=== PATIENT | female | born 1945 | race Caucasian/White ===

== ENCOUNTER 2021-09-04 10:17 | Inpatient (IN) | payer MEDICARE ==
[~2021-09-04] VITALS: Ht 165.1 cm; Wt 49.4 kg
[2021-09-04] MEDS ORDERED: IV NORMAL SALINE 1000 ML BAG IV ONE (10:30)
[2021-09-04 11:12] LABS: CARBON DIOXIDE 23 mmol/L (21-32); CHLORIDE 94 mmol/L (98-107); GLUCOSE 72 mg/dL (74-106); POTASSIUM 4.3 mmol/L (3.5-5.1); UREA NITROGEN, BLOOD 23 mg/dL (7-18)
[2021-09-04 11:18] LABS: HEMATOCRIT 46.3 % (31.2-41.9); MEAN CORPUSCULAR HEMOGLOBIN 32.6 uug (24.7-32.8); MEAN CORPUSCULAR VOLUME 94.7 fL (75.5-95.3); PLATELET COUNT (AUTO) 247 K/uL (179-408)
[2021-09-04 11:19] LABS: ALANINE AMINOTRANSFERASE 20 U/L (14-59); ALKALINE PHOSPHATASE 80 U/L (50-136); ASPARTATE AMINOTRANSFERASE 15 U/L (15-37); BILIRUBIN,DIRECT 0.2 mg/dL (0.0-0.2); BILIRUBIN,TOTAL 1.2 mg/dL (0.2-1.0)
--- NOTE | 2021-09-04 11:30 | NUR ---
pt says that wants to go home and is asking krystal, friend to come and pick her up.
[2021-09-04] MEDS ORDERED: LORAZEPAM 2 MG/1 ML VIAL ONE (11:36)
[2021-09-04] MEDS ORDERED: LORAZEPAM 2 MG/1 ML VIAL IV ONE (11:45)
[2021-09-04] MEDS ORDERED: ZIPRASIDONE MESYLATE 20 MG VIAL IM ONE ×2 (11:51→12:00)
--- NOTE | 2021-09-04 12:20 | NUR ---
LATE ENTRY: pt did not want to stay in her room and tries to leave the room, all comfort measures aqnd reorienting provided. pt still insists that there is nothing wrong with her and wants to home. medicated pt per md order.pt on monitor. vss on ra at this point. pt awake and talking and asking the same questions over and over. covid preacautions implemeted, had to stay long time at bedside to provided xcomfort measures and assurance and explanation to pt.
--- NOTE | 2021-09-04 12:53 | NUR ---
pt calm resting, arousable, on monitor, vss on ra.
[2021-09-04] MEDS ORDERED: ACETAMINOPHEN 650 MG/20.3 ML LIQUID UDC PO PRN (14:00)
[2021-09-04] MEDS ORDERED: ONDANSETRON 4 MG/2 ML VIAL IV PRN (14:00)
--- NOTE | 2021-09-04 15:19 | NUR ---
ORTHSTATIC BP: FLAT 124/81, 97, SITTIN G UP 138/83, HR 99 UNABLE TO DO THE STAND UP POSITION, PT UNABLE TO FOLLOW THE DIRECTION
--- NOTE | 2021-09-04 17:00 | NUR ---
ADMITTED VIA [facility], ACCOMPANIED BY NURSING. ORIENTED TO SURROUNDINGS. PLACED ON ISOLATION FOR COVID+. VERY CONFUSED AND DISORIENTED. REORIENTED REPEATEDLY UNSUCCESSFULLY.
--- NOTE | 2021-09-04 17:36 | NUR ---
Pt tranf. to 3rd floor COVID isolation.
[2021-09-04 18:15] VITALS: BP 162/78
[2021-09-04 20:00] VITALS: BP 127/84
[2021-09-04] MEDS: APIXABAN 2.5 MG TABLET PO SCH (22:19)
[2021-09-04] MEDS: IV NS 1000 ML 1,000 ML IV PRN (22:19)
[2021-09-05 00:27] VITALS: BP 128/73
[2021-09-05 04:00] VITALS: BP_SYST 138; BP_SYST 142; BP_SYST 145; BP_DIAS 84; BP_DIAS 87; BP_DIAS 90
--- NOTE | 2021-09-05 05:00 | NUR ---
mrsa swab and PCR pt fairly slept; patient wants to go home; on and off IVF because pt is getting out of bed for safety; continue to monitor; continue plan of care;
--- NOTE | 2021-09-05 06:38 | NUR ---
a call to Wong IQBAL [phone] done, left message to call 3rd floor back regarding info and home meds. will endorse to next nurse.
[2021-09-05] MEDS ORDERED: no home meds (06:46)
--- NOTE | 2021-09-05 06:46 | NUR ---
Pt's person to notify Wong Arias called back and reported that Ms Nova has no home medications.
--- NOTE | 2021-09-05 07:59 | NUR ---
patient has been refusing her tele monitor, refused again, risks and benefits explained, still refused, stable condition, will continue to monitor, no acute distress noted
[2021-09-05] MEDS ORDERED: OLANZAPINE 5 MG TABLET PO ONE (09:15)
[2021-09-05] MEDS: APIXABAN 2.5 MG TABLET PO SCH (09:18)
--- NOTE | 2021-09-05 09:30 | NUR ---
patient constantly coming out of her room, reinforced instructions about covid positive, patient understands only some instructions, wanders around constantly, keep asking to go home constantly, called her friend, Wong spoke to patient and tiry to reinforce as well, however patient still keep coming out and wanders around. spoke to SOFY Simon that patient keep asking she wants to go home, Per CAR INSPECTOR Aurora, she would like patient to be seen by [facility]ist first. psych eval placed per SOFY Simon order.
[2021-09-05] MEDS ORDERED: OLANZAPINE 10 MG VIAL IM ONE (10:15)
--- NOTE | 2021-09-05 10:36 | NUR ---
patient still was very aggressive, wandering around, not staying in room, assessed by WEB MACHINE TENDER Aurora, with order to give zyprexa, administered, called cell room supervisor and asked for help, to put patient on 1:1 intervention, per cell room supervisor on duty, Charge nurse on duty is going to take care of patient as 1:1. charge nurse is there with patient in her room.
[2021-09-05] MEDS ORDERED: diphenhydrAMINE 50 MG/1 ML VIAL IV ONE (10:45)
[2021-09-05] MEDS ORDERED: HALOPERIDOL LACTATE 5 MG/1 ML VIAL IM ONE ×2 (10:45→16:45)
--- NOTE | 2021-09-05 11:06 | NUR ---
haldol administered as ordered, charge nurse on duty is patient room 1:1 monitoring.
--- NOTE | 2021-09-05 11:07 | NUR ---
fluids and toileting offered, patient is in bed, no acute distress noted, charge nurse is there monitoring patient at bedside as 1:1
[2021-09-05 11:15] VITALS: BP 122/68
--- NOTE | 2021-09-05 11:52 | NUR ---
patient is in sleep, no distress noted, current vitals are 106/73, pulse 110 on tele monitor, o2 sat 96% at room air. 1:1 sitter is bedside.
--- NOTE | 2021-09-05 13:35 | NUR ---
patient is sitting up and eating lunch, no distress noted at this time
[2021-09-05] MEDS: ENSURE ENLIVE (VAN) 240 ML LIQUID PO SCH ×2 (13:52→15:16)
[2021-09-05] MEDS: PROTEIN SUPPLEMENT (PROSTAT) 30 ML LIQUID PO SCH (13:52)
[2021-09-05] MEDS: AZITHROMYCIN 250 MG TABLET PO SCH (15:16)
[2021-09-05 15:30] VITALS: BP 129/67
--- NOTE | 2021-09-05 16:01 | NUR ---
patient is very restless, yelling and wants to go out of room, reenforced, fluids offered, toileting offered, patient is clean and dry, afib uncontrolled, dr Nina made aware. continue to monitor
[2021-09-05] MEDS: METOPROLOL TARTRATE 50 MG TABLET PO SCH (17:33)
--- NOTE | 2021-09-05 18:09 | NUR ---
haldol administered, patient calm down, ate dinner herself, 1:1 sitter at bedside, no acute distress noted, fluids offered, kept clean and dry, toilet offered, skin and circulation assessed to both wrists, hands, no skin issues noted, capillary refill less than 3 seconds. continue with care and continue to keep patient comfortable.
--- NOTE | 2021-09-05 19:18 | NUR ---
Patient in bed, awake, monitored during shift closely for safety, no acute distress noted, 1! sitpham, communicated with sitter about patient care and endorsed to next shift accordingly. Addendum: 09/05/21 at 1933 by TYLER JAMES RN RN patient is still afib but pulse is in high 90s, much better than before after administering beta lowell as ordered by dr guzman
[2021-09-05 20:00] VITALS: BP 131/71
[2021-09-05] MEDS: APIXABAN 5 MG TABLET PO SCH (20:47)
[2021-09-05] MEDS: IV NS 1000 ML 1,000 ML IV PRN (23:52)
[2021-09-06] VITALS: BP 136/65
[2021-09-06 04:00] VITALS: BP 141/78
[2021-09-06 07:04] LABS: HEMATOCRIT 43.4 % (31.2-41.9); MEAN CORPUSCULAR HEMOGLOBIN 32.3 uug (24.7-32.8); MEAN CORPUSCULAR VOLUME 91.5 fL (75.5-95.3); PLATELET COUNT (AUTO) 251 K/uL (179-408)
[2021-09-06 07:35] LABS: CREATININE 0.6 mg/dL (0.6-1.3); MAGNESIUM 1.9 mg/dL (1.8-2.4); PHOSPHOROUS 1.5 mg/dL (2.5-4.9); POTASSIUM 3.1 mmol/L (3.5-5.1)
[2021-09-06 08:00] VITALS: BP 105/57
[2021-09-06] MEDS: PROTEIN SUPPLEMENT (PROSTAT) 30 ML LIQUID PO SCH (08:00)
[2021-09-06] MEDS: APIXABAN 5 MG TABLET PO SCH ×2 (09:20→20:29)
[2021-09-06] MEDS: METOPROLOL TARTRATE 50 MG TABLET PO SCH ×3 (09:26→17:31)
[2021-09-06] MEDS: ENSURE ENLIVE (VAN) 240 ML LIQUID PO SCH ×3 (09:34→17:09)
[2021-09-06 12:00] VITALS: BP 112/70
[2021-09-06] MEDS: POTASSIUM CHLORIDE 20 MEQ TAB.PRT.SR PO SCH ×2 (15:23→17:29)
[2021-09-06 16:00] VITALS: BP 111/69
[2021-09-06] MEDS: IV NS 1000 ML 1,000 ML IV PRN (16:11)
[2021-09-06] MEDS: AZITHROMYCIN 250 MG TABLET PO SCH (16:11)
[2021-09-06] MEDS ORDERED: SODIUM PHOSPHATE MM 15 MMOL in IV NORMAL SALINE 250 ML IV ONE (17:00)
[2021-09-06] MEDS: HALOPERIDOL 0.5 MG TABLET PO SCH (17:28)
--- NOTE | 2021-09-06 19:30 | NUR ---
Received pt awake, alert and oriented x2. Sitter at bedside. Pt in no acute distress.Pt heart rate on controlled afib. aware of the heart rhythm. Safety and comfort provided. Will continue to monitor.
[2021-09-06] MEDS: DIVALPROEX 125 MG TABLET.DR PO SCH (20:25)
[2021-09-06 20:36] VITALS: BP 127/76
[2021-09-07] VITALS (7 sets, daily range): BP systolic 106–149; BP diastolic 62–91
--- NOTE | 2021-09-07 06:14 | NUR ---
Pt slept intermittently. Pt in no acute distress. Iv intact.Sitter at bedside for safety. Pt trying to get out of the bed . Pt needs reorientation. Pt on controlled afib. Prescribed medication given and pt tolerated it well.Pt turned and repositioned. Safety and comfort provided. Will endorse to incoming nurse for continuity of care.
[2021-09-07 06:41] LABS: HEMATOCRIT 42.6 % (31.2-41.9); MEAN CORPUSCULAR HEMOGLOBIN 32.4 uug (24.7-32.8); MEAN CORPUSCULAR VOLUME 93.1 fL (75.5-95.3); PLATELET COUNT (AUTO) 231 K/uL (179-408)
[2021-09-07 07:22] LABS: CREATININE 0.6 mg/dL (0.6-1.3); POTASSIUM 3.6 mmol/L (3.5-5.1)
[2021-09-07] MEDS: PROTEIN SUPPLEMENT (PROSTAT) 30 ML LIQUID PO SCH (08:56)
--- NOTE | 2021-09-07 09:30 | NUR ---
RECEIVED PATIENT IN BED AWAKE ALERT TO SELF CONFUSED AND DISORIENTED ON ROOM AIR WITH NO SHORTNESS OF BREATH AT THIS TIME SHE IS ON COVID ISOLATION AND PRECAUTION NO COUGHS OR FEVER ASYMPTOMATIC AT THIS TIME IVF ORDERED WITH NO S/S OF INFILTERATION ON SITE. SHE HAS A BILATERAL WRIST RESTRAINTS FOR SAFETY AND A ONE ON ONE SITTER PATIENT MADE COMFORTABLE WILL CONTINUE TO OBSERVE.
[2021-09-07] MEDS: HALOPERIDOL 0.5 MG TABLET PO SCH ×3 (09:37→16:22)
[2021-09-07] MEDS: DIVALPROEX 125 MG TABLET.DR PO SCH ×2 (09:37→20:26)
[2021-09-07] MEDS: METOPROLOL TARTRATE 50 MG TABLET PO SCH ×3 (09:38→16:22)
[2021-09-07] MEDS: APIXABAN 5 MG TABLET PO SCH ×2 (09:42→20:26)
[2021-09-07] MEDS: ENSURE ENLIVE (VAN) 240 ML LIQUID PO SCH ×3 (09:48→16:23)
--- NOTE | 2021-09-07 11:45 | NUR ---
ONE ON ONE SITTER DISCONTINUED AT THIS TIME PATIENT HAS BEEN QUITE AND BEING CONTROLLED BY THE BILATERAL WRIST RESTRAINTS ORDERED
[2021-09-07] MEDS: AZITHROMYCIN 250 MG TABLET PO SCH (16:22)
[2021-09-07] MEDS ORDERED: SODIUM PHOSPHATE MM 15 MMOL in IV NORMAL SALINE 250 ML IV ONE (17:00)
--- NOTE | 2021-09-07 19:30 | NUR ---
Received patient lying in bed. AAOX1-2. Able to answer simple question and follow simple direction. In no apparent distress. Wrist restraint in place. Circulation on wrist and hand checked. IV site on right upper arm intact and patent. Sodium phos infusing at this time. A. fib on tele with HR of 90/min. COVID precaution observed. Safety measure initiated. Continue to monitor.
[2021-09-08] VITALS: BP 135/87
[2021-09-08] MEDS ORDERED: GUAIFENESIN/DEXTROMETHORPHAN 5 ML UDC PO PRN (01:00)
--- NOTE | 2021-09-08 05:28 | NUR ---
Patient slept well during the night. Remains AAOX1-2. In no acute distress. No signs or symptoms of pain or SOB. Wrist restraint remains in place. Circulation on wrist and hand checked ever 2 hours. IV site on right upper arm intact and patent. IVF infusing. A. fib on tele with HR of 98/min. COVID precaution maintained. Safety measure maintained.
[2021-09-08 07:27] LABS: CREATININE 0.7 mg/dL (0.6-1.3); PHOSPHOROUS 3.2 mg/dL (2.5-4.9); POTASSIUM 3.6 mmol/L (3.5-5.1)
[2021-09-08] MEDS: DIVALPROEX 125 MG TABLET.DR PO SCH ×2 (09:20→21:04)
[2021-09-08] MEDS: HALOPERIDOL 0.5 MG TABLET PO SCH ×3 (09:20→16:31)
[2021-09-08] MEDS: APIXABAN 5 MG TABLET PO SCH ×2 (09:21→21:06)
[2021-09-08] MEDS: ENSURE ENLIVE (VAN) 240 ML LIQUID PO SCH ×3 (09:21→16:32)
[2021-09-08] MEDS: METOPROLOL TARTRATE 50 MG TABLET PO SCH ×3 (09:22→16:32)
[2021-09-08] MEDS: PROTEIN SUPPLEMENT (PROSTAT) 30 ML LIQUID PO SCH (09:22)
--- NOTE | 2021-09-08 10:00 | NUR ---
Attempted to taper o2to 4/lit but pt desat to 87% put pt back to 5lit via n/c with sat of 93%. Addendum: 09/08/21 at 1850 by LIS BETTENCOURT RN WRONG PT
[2021-09-08 11:38] VITALS: BP 149/63
[2021-09-08 16:00] VITALS: BP 144/88
[2021-09-08] MEDS: AZITHROMYCIN 250 MG TABLET PO SCH (16:31)
--- NOTE | 2021-09-08 18:28 | NUR ---
Pt coughing throughout shift managed with Robitus[place] VOGT. Addendum: 09/08/21 at 1854 by LIS BETTENCOURT RN WRONG PT
[2021-09-08 20:00] VITALS: BP 132/77
[2021-09-09 00:45] VITALS: BP 135/92
--- NOTE | 2021-09-09 02:48 | NUR ---
Awake alert and oriented x1. Confused and disoriented. Bilateral wrist restraints intact. On telemetry patient been sinus rhythm. All needs attended. Fall precautions maintained. Needs attended. Incontinent of bowel and bladder. Kept clean and dry. Contact isolation maintained. Patient COVID (+). No behavioral issues noted so far. Patient on haldol/depakote as scheduled. VSS.
[2021-09-09 04:00] VITALS: BP 126/66
--- NOTE | 2021-09-09 06:42 | NUR ---
Slept well most of the shift. Bilateral wrist restraints intact. At 0600 am patient gets so confused and trying to get OOB. Redirect/reoriented patient and explained patient in the hospital. Telemetry intact, no signs of ectopy noted. Will monitor patient.
[2021-09-09] MEDS: DIVALPROEX 125 MG TABLET.DR PO SCH ×2 (09:18→20:55)
[2021-09-09] MEDS: PROTEIN SUPPLEMENT (PROSTAT) 30 ML LIQUID PO SCH (09:18)
[2021-09-09] MEDS: HALOPERIDOL 0.5 MG TABLET PO SCH ×3 (09:18→16:40)
[2021-09-09] MEDS: APIXABAN 5 MG TABLET PO SCH ×2 (09:21→20:57)
[2021-09-09] MEDS: METOPROLOL TARTRATE 50 MG TABLET PO SCH ×3 (09:23→16:47)
[2021-09-09] MEDS: ENSURE ENLIVE (VAN) 240 ML LIQUID PO SCH ×3 (09:24→16:47)
[2021-09-09] MEDS: IV NS 1000 ML 1,000 ML IV PRN (10:32)
[2021-09-09] MEDS ORDERED: APIX5TAB PO (11:29)
[2021-09-09] MEDS ORDERED: METO50TA16 PO (11:29)
[2021-09-09] MEDS ORDERED: DIVA125T2 PO (11:29)
[2021-09-09] MEDS ORDERED: HALO0.5T6 PO (11:29)
[2021-09-09 11:32] VITALS: BP 111/72
[2021-09-09 16:00] VITALS: BP 140/93
[2021-09-09] MEDS: AZITHROMYCIN 250 MG TABLET PO SCH (16:40)
[2021-09-09 21:07] VITALS: BP 134/79
--- NOTE | 2021-09-09 22:12 | NUR ---
Patient in bed resting comfortably.Awake alertx1 calm and Confused .NSr On tele.On RA.Saturating well.Off restraints at this time.Skin and circulation WNL.Continue on Contact isolation for covid(+). Fall precautions maintained. Incontinent of bowel and bladder.Pericare rendered and repositioned patient.Compliant with med . Kept clean and dry. Will continue to monitor.
[2021-09-10 00:12] VITALS: BP 138/72
[2021-09-10] MEDS: IV NS 1000 ML 1,000 ML IV PRN ×2 (00:56→14:32)
[2021-09-10 04:00] VITALS: BP 137/85
--- NOTE | 2021-09-10 07:30 | NUR ---
Sleeping, appears comfortable. Room air. Bilateral soft wrist restraints off. Bed alarm on
[2021-09-10] MEDS: DIVALPROEX SPRINKLE 125 MG CAP.SPRINK PO SCH ×2 (09:09→21:32)
[2021-09-10] MEDS: HALOPERIDOL 0.5 MG TABLET PO SCH ×3 (09:09→17:25)
[2021-09-10] MEDS: APIXABAN 5 MG TABLET PO SCH ×2 (09:10→21:33)
[2021-09-10] MEDS: ENSURE ENLIVE (VAN) 240 ML LIQUID PO SCH ×3 (09:10→17:27)
[2021-09-10] MEDS: PROTEIN SUPPLEMENT (PROSTAT) 30 ML LIQUID PO SCH (09:11)
[2021-09-10] MEDS: METOPROLOL TARTRATE 50 MG TABLET PO SCH ×3 (09:12→17:26)
--- NOTE | 2021-09-10 10:00 | NUR ---
compliant with taking of medication. PT chance initiated
[2021-09-10 11:46] VITALS: BP 120/70
--- NOTE | 2021-09-10 13:12 | NUR ---
Covid 19 antigen done today with positive result
--- NOTE | 2021-09-10 14:00 | NUR ---
Wandering out of the room redirected back to the room
[2021-09-10 15:16] VITALS: BP 123/71
[2021-09-10] MEDS ORDERED: HALOPERIDOL LACTATE 5 MG/1 ML VIAL IM ONE (18:30)
--- NOTE | 2021-09-10 18:40 | NUR ---
Wandering out of the room multiples times even when directed. Pulled out recently reinserted IV access. Haldol IM given as ordered. Bilateral soft wrist restraints applied. Endorsed for further care and follow up
[2021-09-10 20:10] VITALS: BP 122/65
--- NOTE | 2021-09-10 21:54 | NUR ---
Received resident awake on bed, on room air with no respiratory distress noted. Bilateral soft wrist restraints applied, skin and circulation checked. Denies pain and discomfort. IV access of R FA patent and intact with ongoing NS running at 75 ml/hr. Safety and droplet precautions observed. All needs attended. Call light placed within reach. Will continue to monitor.
[2021-09-10 22:10] VITALS: BP 122/65
[2021-09-11] VITALS: BP 135/83
[2021-09-11 04:10] VITALS: BP 127/62
--- NOTE | 2021-09-11 06:27 | NUR ---
Pt slept intermittently throughout the night, easily arousable for care and able to make needs known. Still on bilateral soft wrist restraints, skin and circulation assessment done. All needs attended. D/C Tele. Call light placed within reach. Will endorse to next shift.
[2021-09-11] MEDS: IV NS 1000 ML 1,000 ML IV PRN (06:32)
[2021-09-11] MEDS: DIVALPROEX SPRINKLE 125 MG CAP.SPRINK PO SCH (09:43)
[2021-09-11] MEDS: METOPROLOL TARTRATE 50 MG TABLET PO SCH (09:43)
[2021-09-11] MEDS: HALOPERIDOL 0.5 MG TABLET PO SCH (09:43)
[2021-09-11] MEDS: ENSURE ENLIVE (VAN) 240 ML LIQUID PO SCH (09:45)
[2021-09-11] MEDS: APIXABAN 5 MG TABLET PO SCH (09:45)
[2021-09-11] MEDS: PROTEIN SUPPLEMENT (PROSTAT) 30 ML LIQUID PO SCH (09:46)
[2021-09-11 11:53] VITALS: BP 143/76
--- NOTE | 2021-09-11 14:07 | NUR ---
[facility] given to alicia shay
== END 2021-09-11 14:00 | DRG 308 ==
LOC: ER 10:17 → TRANSITION 14:48 → TELE3 17:28 → MEDSURG3 09-11 06:00
PROVIDERS: ADMIT Registered Nurse; ATTEND Nurse Practitioner Acute Care
DX: I48.19 Other persistent atrial fibrillation (principal); U07.1 COVID-19; J12.82 Pneumonia due to coronavirus disease 2019; G93.49 Other encephalopathy; E22.2 Syndrome of inappropriate secretion of antidiuretic hormone; I95.1 Orthostatic hypotension; E86.0 Dehydration; E87.6 Hypokalemia; F03.90 Unspecified dementia, unspecified severity, without behavioral disturbance, psychotic disturbance, mood disturbance, and anxiety; F39 Unspecified mood [affective] disorder; F29 Unspecified psychosis not due to a substance or known physiological condition
CPT/HCPCS: 36415; 70450; 71045; 83615; 83735; 84100; 84443; 84484; 85025; 85730; 86140; 93005; 93307; 93880; 97161; A4663; G0378; J1200; J1630; J2060; J2358; J3486; J3490; J7040; Q0144; U0003